=== PATIENT | female | born 1940 | race Caucasian/White ===

== ENCOUNTER → 2017-09-13 | Outpatient (CLI) | payer MEDICARE | LOC: CVU 12:37 | PROVIDERS: ATTEND Internal Medicine Cardiovascular Disease | DX: I08.0 Rheumatic disorders of both mitral and aortic valves (principal); I10 Essential (primary) hypertension; G47.30 Sleep apnea, unspecified; E78.5 Hyperlipidemia, unspecified; Z87.891 Personal history of nicotine dependence | CPT/HCPCS: 93306 ==

== ENCOUNTER → 2018-02-14 | Outpatient (CLI) | payer MEDICARE ==
[~2018-02-14] MED LIST: REGADENOSON 0.4 MG/5 ML SYRINGE ONE
== END | disposition home or self-care (01) ==
LOC: CFH 08:01
PROVIDERS: ATTEND Internal Medicine Cardiovascular Disease
DX: I25.10 Atherosclerotic heart disease of native coronary artery without angina pectoris (principal)
CPT/HCPCS: 78452; 93017; A9502; J2785

== ENCOUNTER 2018-03-16 08:01 | Observation (INO) | payer MEDICARE ==
[~2018-03-16] VITALS: Ht 157.5 cm; Wt 73.6 kg
[2018-03-16 08:25] VITALS: BP 145/86
[2018-03-16] MEDS ORDERED: LOSA50TA7 PO (08:40)
[2018-03-16] MEDS ORDERED: AMLO5TAB7 PO (08:40)
[2018-03-16] MEDS ORDERED: ASPI-621 PO (08:40)
[2018-03-16] MEDS ORDERED: THYR30TA PO (08:40)
[2018-03-16] MEDS ORDERED: PRAV40TA2 PO (08:40)
[2018-03-16] MEDS ORDERED: FENTANYL PF 100 MCG/2ML ONE (09:23)
[2018-03-16] MEDS ORDERED: VERAPAMIL 2.5 MG/ML, 2ML ONE (09:23)
[2018-03-16] MEDS ORDERED: NITROGLYCERIN 5 MG/ML, 10ML ONE (09:23)
[2018-03-16] MEDS ORDERED: MIDAZOLAM 1 MG/ML, 5ML ONE (09:23)
[2018-03-16] MEDS ORDERED: LIDOCAINE-MPF 2%, 2ML ONE (09:23)
[2018-03-16] MEDS ORDERED: HEPARIN 1,000 UNITS/ML, 10ML ONE (09:24)
[2018-03-16] MEDS ORDERED: BIVALIRUDIN 250 MG ONE (09:24)
[2018-03-16] MEDS ORDERED: TICAGRELOR 90 MG TABLET ONE (11:03)
[2018-03-16] MEDS: PLEASE ENTER ALLERGIES MC SCH ×3 (11:30→23:44)
[2018-03-16] MEDS ORDERED: ACETAMINOPHEN 325 MG TABLET PO PRN (11:30)
[2018-03-16] MEDS ORDERED: BIVALIRUDIN 250 MG in DEXTROSE 5% 100 ML IV SCH (12:03)
[2018-03-16 13:49] VITALS: BP 113/75
[2018-03-16 18:03] LABS: TROPONIN I 0.725 ng/mL (0.000-0.045)
[2018-03-16 19:23] VITALS: BP 135/81
[2018-03-16] MEDS: THYROID 30 MG TABLET PO SCH (20:43)
[2018-03-16] MEDS: TICAGRELOR 90 MG TABLET PO SCH (21:00)
[2018-03-16] MEDS ORDERED: PRAVASTATIN 40 MG TABLET PO SCH (21:00)
[2018-03-17 01:59] VITALS: BP 136/73
[2018-03-17 05:41] LABS: ALBUMIN 3.4 g/dL (3.4-5.0); ANION GAP 11 mmol/L (5-15); CALCIUM 8.6 mg/dL (8.5-10.1); CHLORIDE 112 mmol/L (98-107); CREATININE 0.86 mg/dL (0.55-1.02)
[2018-03-17] MEDS: THYROID 30 MG TABLET PO SCH (07:40)
[2018-03-17 08:37] VITALS: BP 114/73
[2018-03-17] MEDS ORDERED: TICA90TA PO (08:45)
[2018-03-17] MEDS ORDERED: ASPIRIN 81 MG TABLET EC PO SCH ×2 (09:00)
[2018-03-17] MEDS ORDERED: AMLODIPINE 5 MG TABLET PO SCH (09:00)
[2018-03-17] MEDS ORDERED: LOSARTAN 50MG TABLET PO SCH (09:00)
[2018-03-17] MEDS: TICAGRELOR 90 MG TABLET PO SCH (09:16)
== END 2018-03-17 12:25 | disposition home or self-care (01) ==
LOC: CACL 08:01 → ORIP 11:06 → 5SO 11:52
PROVIDERS: ADMIT Internal Medicine Cardiovascular Disease; ATTEND Internal Medicine Cardiovascular Disease
DX: I25.10 Atherosclerotic heart disease of native coronary artery without angina pectoris (principal); I10 Essential (primary) hypertension; E78.2 Mixed hyperlipidemia; G47.30 Sleep apnea, unspecified; I35.1 Nonrheumatic aortic (valve) insufficiency
CPT/HCPCS: 36415; 80048; 82040; 84484; 85014; 85018; 93005; 93458; 93571; 99156; 99157; C1769; C1874; C1887; C1894; C9600; G0378; J0583; J1644; J2250; J3010; J3490; Q9967